=== PATIENT | male | born 1955 ===

== ENCOUNTER 2019-12-26 15:11 | Emergency (ER) | payer MEDICARE, MEDICAID ==
--- NOTE | 2019-12-26 15:38 | NUR ---
PT WALKED OUT OF TRIAGE FOR BUG BITES/RASH, STATED THAT HE WAS NOT TREATED RIGHT PER RECEIVING INSPECTOR AFTER MAKING STATEMENT THAT HE THOUGHT HE HAS SCABIES AND THAT HE HAS NOT BE DX PROPERLY.
== END 2019-12-26 15:41 | disposition left against medical advice (07) ==
LOC: ER 15:11
DX: R21 Rash and other nonspecific skin eruption (principal); Z53.21 Procedure and treatment not carried out due to patient leaving prior to being seen by health care provider